=== PATIENT | male | born 1980 | race Caucasian/White ===

== ENCOUNTER 2018-02-25 14:01 | Outpatient (CLI) | payer BC | END 2018-02-25 14:02 | disposition home or self-care (01) | LOC: BICCT 14:01 | PROVIDERS: ATTEND Urology | DX: N20.1 Calculus of ureter (principal) | CPT/HCPCS: 74176 ==

== ENCOUNTER 2018-07-07 08:45 | Outpatient (CLI) | payer BC ==
--- NOTE | 2018-07-07 10:09 | RAD ---
LEFT RIBS 3 VIEWS: HISTORY: Pleurodynia. FINDINGS: No fracture. No cortical irregularity. No periosteal reaction. IMPRESSION: Unremarkable left rib radiographs. POS: [facility]
== END 2018-07-07 08:46 | disposition home or self-care (01) ==
LOC: BICRAD 08:45
PROVIDERS: ATTEND Family Medicine
DX: R07.81 Pleurodynia (principal)

== ENCOUNTER 2023-05-30 08:43 | Day surgery (SDC) | payer BC ==
[2023-05-30] MEDS ORDERED: Acetaminophen 500 MG TAB ONE (09:32)
[2023-05-30] MEDS ORDERED: Ropivacaine 0.5% HCl/PF (150 MG/30 ML VIAL) ONE (10:04)
[2023-05-30] MEDS ORDERED: fentaNYL 50 mcg/mL 1 mL Vial ONE (10:04)
[2023-05-30] MEDS ORDERED: Ropivacaine 0.2% HCl/PF 20 ML ONE (10:04)
[2023-05-30] MEDS ORDERED: Midazolam HCl 2 mg/2 ml Vial ONE (10:04)
[2023-05-30] MEDS ORDERED: CEFAZOLIN 2 GM VIAL ONE (10:49)
[2023-05-30] MEDS ORDERED: Sodium Chloride 0.9% 100 ML ONE (10:49)
[2023-05-30] MEDS ORDERED: Sevoflurane 250 ML INH ANEST BOTTLE ONE (10:54)
[2023-05-30] MEDS ORDERED: Zolpidem Tartrate 5 MG TAB PO PRN (11:00)
[2023-05-30] MEDS ORDERED: Ropivacaine 0.2% 550 ML 550 ML NERVE BLCK SCH (11:00)
[2023-05-30] MEDS ORDERED: traMADol HCl 50 MG TAB PO PRN ×2 (11:00)
[2023-05-30] MEDS ORDERED: Promethazine HCl 25 MG/ML VIAL IM PRN (11:00)
[2023-05-30] MEDS ORDERED: HYDROcodone/Acetaminophen 10/325 mg Tablet PO PRN ×2 (11:00)
[2023-05-30] MEDS ORDERED: Ondansetron PF 4 MG/2 ML Vial IVP PRN (11:00)
[2023-05-30] MEDS ORDERED: Ondansetron PF 4 MG/2 ML Vial ONE (11:07)
[2023-05-30] MEDS ORDERED: PROPOFOL 200 MG/20 ML VIAL ONE (11:07)
[2023-05-30] MEDS ORDERED: Lidocaine 1% PF 5 ML VIAL ONE (11:07)
[2023-05-30] MEDS ORDERED: Rocuronium Bromide 10 MG/ML (10ML VIAL) ONE (11:07)
[2023-05-30] MEDS ORDERED: EPINEPHrine 1 MG/ML AMP ONE ×2 (11:13→11:39)
[2023-05-30] MEDS ORDERED: Lidocaine 1% (PF) 30 ML VIAL ONE (11:13)
[2023-05-30] MEDS ORDERED: Bupivacaine PF 0.5% 30 ML VIAL ONE (11:39)
[2023-05-30] MEDS ORDERED: Ketorolac Tromethamine 30 MG/ML VIAL IVP SCH (12:00)
[2023-05-30] MEDS ORDERED: SUGAMMADEX SODIUM 200 MG/2 ML VIAL ONE ×2 (12:44→12:58)
[2023-05-30] MEDS ORDERED: Promethazine HCl 25 MG/ML VIAL ONE (13:44)
[2023-05-30] MEDS ORDERED: Ketorolac Tromethamine 30 MG/ML VIAL ONE (14:21)
[2023-05-30] MEDS ORDERED: Ondansetron ODT 4 MG TAB ONE (15:31)
== END 2023-05-30 15:48 | disposition home or self-care (01) ==
LOC: SDC 08:43
PROVIDERS: ATTEND Orthopaedic Surgery
PROC: 0RNJ4ZZ Release Right Shoulder Joint, Percutaneous Endoscopic Approach (ICD-10-PCS; principal; 2023-05-30)
PROC: 0LS34ZZ Reposition Right Upper Arm Tendon, Percutaneous Endoscopic Approach (ICD-10-PCS; principal; 2023-05-30)
DX: M75.41 Impingement syndrome of right shoulder (principal); M75.111 Incomplete rotator cuff tear or rupture of right shoulder, not specified as traumatic; S43.431A Superior glenoid labrum lesion of right shoulder, initial encounter; I10 Essential (primary) hypertension; Z98.890 Other specified postprocedural states; Z79.899 Other long term (current) drug therapy; X58.XXXA Exposure to other specified factors, initial encounter
CPT/HCPCS: A4306; C1713; J0171; J1885; J2001; J2250; J2405; J2550; J2704; J2795; J3010; J3490; Q0162; S0020